=== PATIENT | female | born 1985 | race Caucasian/White ===

== ENCOUNTER → 2017-06-01 | Outpatient (CLI) | payer OTHER ==
[~2017-06-01] MED LIST: BENA25CA4 PO; PANT40P IVP; PREN0.01 PO; PROT40TA PO; TRIA.1%T TOPICAL; ZITHTAB PO
[2017-06-01 09:11] LABS: HEMATOCRIT 39.4 % (35.0-46.0); MEAN CELL VOLUME 88.9 FL (80.0-100.0); MEAN CORPUSCULAR HEMOGLOBIN 30.5 PG (27.0-34.0); MEAN CORPUSCULAR HGB CONC 34.3 % (32.0-36.0); PLATELET COUNT 220 TH/MM3 (150-450); RED BLOOD COUNT 4.43 MIL/MM3 (4.00-5.30); REVIEW FLAG FINAL; WHITE BLOOD COUNT 5.1 TH/MM3 (4.0-11.0)
[2017-06-01 09:36] LABS: ANION GAP 5 MEQ/L (5-15); BICARBONATE 26.5 MEQ/L (21.0-32.0); BLOOD UREA NITROGEN 12 MG/DL (7-18); CHLORIDE 107 MEQ/L (98-107); GLUCOSE,FASTING 94 MG/DL (74-99); POTASSIUM 4.2 MEQ/L (3.5-5.1); SODIUM (NA) 138 MEQ/L (136-145)
[2017-06-01 09:37] LABS: AST (GOT) 16 U/L (15-37); GLOMERULAR FILTRATION RATE 92 ML/MIN (>89)
[2017-06-01 09:48] LABS: ALKALINE PHOSPHATASE 61 U/L (45-117); ALT (GPT) 21 U/L (10-53); HDL CHOLESTEROL 62.3 MG/DL (40.0-60.0); LDL CHOLESTEROL 125 MG/DL (0-99); TOTAL BILIRUBIN ADULT 0.3 MG/DL (0.2-1.0)
== END ==
LOC: CLAB 08:52
PROVIDERS: ATTEND Family Medicine
DX: Z00.00 Encounter for general adult medical examination without abnormal findings (principal)
CPT/HCPCS: 36415; 80053; 80061; 84443; 85027

== ENCOUNTER 2017-06-10 09:55 | Emergency (ER) | payer OTHER ==
[~2017-06-10] VITALS: Ht 157.5 cm; Wt 61.2 kg
[~2017-06-10 09:55] MED LIST changes: -BENA25CA4 PO; -PROT40TA PO; -TRIA.1%T TOPICAL; -ZITHTAB PO
[2017-06-10 09:58] VITALS: BP 131/81; PULSE 76; RESP 18; TEMP 98.3; O2SAT 100
[2017-06-10] MEDS ORDERED: BENA25CA4 PO (10:06)
[2017-06-10] MEDS ORDERED: PROT40TA PO (10:06)
[2017-06-10] MEDS ORDERED: ZITHTAB PO (10:10)
[2017-06-10] MEDS ORDERED: TRIA.1%T TOPICAL (10:10)
--- NOTE | 2017-06-10 10:10 | PD ---
HPI Chief Complaint: ENT Complaint Time Seen by Provider: 10:04 Travel History International Travel<30 days: No Contact w/Intl Traveler<30days: No Traveled to known affect area: No History of Present Illness HPI Patient presents with complaints of sore throat 2 days and a new rash this morning. Denies nausea vomiting diarrhea or fever. Positive sick contacts. Denies . Rashes primarily located on her anterior neck and anterior abdomen. PFSH Past Medical History Diminished Hearing: No GERD: Yes (EE) Inguinal Hernia: Yes (RIGHT SIDED REPAIRED) ?: Not LMP: 05/2017 : 2 Para: 1 Past Surgical History Abdominal Surgery: Yes (RIGHT HERNIA REPAIR @ 9 MONTHS OLD) Section: Yes (X 1) Oral Surgery: Yes (WISDOM TEETH REMOVED) Social History Alcohol Use: Yes (SOCIAL) Tobacco Use: No Substance Use: No Allergies-Medications (Allergen,Severity, Reaction): Coded Allergies: morphine (Verified Allergy, Severe, Itching, 06/10/17) Reported Meds & Prescriptions Reported Meds & Active Scripts Active Reported Vit ( Plus) (Prenat Multivit/[place]/Iron/Folic Ac) Tab 1 Tab PO DAILY Protonix (Pantoprazole Sodium) 40 Mg Inj 40 Mg IVP DAILY Review of Systems General / Constitutional: No: Fever Eyes: No: Visual changes HENT: Positive: Sore Throat, No: Headaches Cardiovascular: No: Chest Pain or Discomfort Respiratory: No: Shortness of Breath Gastrointestinal: No: Abdominal Pain Genitourinary: No: Dysuria Musculoskeletal: No: Pain Skin: Positive Rash, Positive Itching Neurologic: No: Weakness Psychiatric: No: Depression Endocrine: No: Polydipsia Hematologic/Lymphatic: No: Easy Bruising Physical Exam Narrative GENERAL: Well-nourished, well-developed patient. SKIN: Focused skin assessment warm/dry. HEAD: Normocephalic. Throat: Erythematous mild adenopathy no exudate Nonblanching supple dermatitis noted to anterior neck and anterior abdomen, no cellulitic change EYES: No scleral icterus. No injection or drainage. NECK: Supple, trachea midline. No JVD or lymphadenopathy. CARDIOVASCULAR: Regular rate and rhythm without murmurs, gallops, or rubs. RESPIRATORY: Breath sounds equal bilaterally. No accessory muscle use. GASTROINTESTINAL: Abdomen soft, non-tender, nondistended. MUSCULOSKELETAL: No cyanosis, or edema. BACK: Nontender without obvious deformity. No CVA tenderness. Data Data Last Documented VS Vital Signs Date Time Temp Pulse Resp B/P (MAP) Pulse Ox O2 Delivery O2 Flow Rate FiO2 06/10/17 09:58 98.3 76 18 131/81 (98) 100 MDM Medical Decision Making Medical Screen Exam Complete: Yes Emergency Medical Condition: Yes Differential Diagnosis Pharyngitis, strep throat, viral exanthem Narrative Course Assessment and plan discussed with patient at bedside Diagnosis Primary Impression: Pharyngitis Qualified Codes: J02.9 - Acute pharyngitis, unspecified Patient Instructions: General Instructions Additional Instructions: Rest fluids and Motrin, continue [id number] antihistamine, follow-up with PCP, return to emergency room if any onset of new symptoms. Med/Other Pt SpecificInfo: Prescription(s) given Scripts Triamcinolone Topical (Triamcinolone Topical) 0.1% Cream 1 APPLIC TOPICAL ONCE for Inflammation, #1 TUBE 0 Refills Prov: Steven Argueta MD 06/10/17 Azithromycin (Zithromax Z-Jeff) 250 Mg Dspk 250 MG PO DIRECTED for Infection, #1 DSPK 0 Refills 500 MG (2 tabs) day 1, then 1 tab days 2-5. Prov: Steven Argueta MD 06/10/17 Disposition: 01 DISCHARGE HOME Condition: Good Steven Argueta MD Jun 10, 2017 10:10
== END 2017-06-10 10:23 | disposition home or self-care (01) ==
LOC: PHED 09:55
DX: J02.9 Acute pharyngitis, unspecified (principal); R21 Rash and other nonspecific skin eruption; Z87.19 Personal history of other diseases of the digestive system
CPT/HCPCS: 99284

== ENCOUNTER → 2017-09-28 | Outpatient (CLI) | payer OTHER ==
[~2017-09-28] MED LIST changes: +BENA25CA4 PO; -PANT40P IVP; -PREN0.01 PO; +PROT40TA PO; +TRIA.1%T TOPICAL; +ZITHTAB PO
[2017-09-28 10:37] LABS: HEMATOCRIT 40.1 % (35.0-46.0); MEAN CELL VOLUME 87.6 FL (80.0-100.0); MEAN CORPUSCULAR HEMOGLOBIN 30.6 PG (27.0-34.0); MEAN CORPUSCULAR HGB CONC 34.9 % (32.0-36.0); MEAN PLATELET VOLUME 8.2 FL (7.0-11.0); PLATELET COUNT 236 TH/MM3 (150-450); RED BLOOD COUNT 4.58 MIL/MM3 (4.00-5.30); RED CELL DISTRIBUTION WIDTH 12.7 % (11.6-17.2); WHITE BLOOD COUNT 7.5 TH/MM3 (4.0-11.0)
[2017-09-28 11:02] LABS: ALBUMIN 4.3 GM/DL (3.4-5.0); ALT (GPT) 28 U/L (10-53); AST (GOT) 20 U/L (15-37); BLOOD UREA NITROGEN 13 MG/DL (7-18); CALCIUM 8.6 MG/DL (8.5-10.1); CHLORIDE 105 MEQ/L (98-107); CHOLESTEROL 211 MG/DL (120-200); CREATININE 0.71 MG/DL (0.50-1.00); GLOMERULAR FILTRATION RATE 95 ML/MIN (>89); GLUCOSE,FASTING 84 MG/DL (74-99); SODIUM (NA) 139 MEQ/L (136-145)
[2017-09-28 11:11] LABS: ALKALINE PHOSPHATASE 78 U/L (45-117); CHOLESTEROL/ HDL RATIO 3.41 RATIO; HDL CHOLESTEROL 61.8 MG/DL (40.0-60.0); LDL CHOLESTEROL 136 MG/DL (0-99); TOTAL BILIRUBIN ADULT 0.4 MG/DL (0.2-1.0); TOTAL PROTEIN 7.8 GM/DL (6.4-8.2); TRIGLYCERIDES 64 MG/DL (42-150)
== END ==
LOC: CLAB 10:10
PROVIDERS: ATTEND Family Medicine
DX: Z00.00 Encounter for general adult medical examination without abnormal findings (principal); L29.0 Pruritus ani
CPT/HCPCS: 36415; 80053; 80061; 84443; 85027; 87328; 87329; 87506